=== PATIENT | male | born 1975 | race Caucasian/White ===

== ENCOUNTER 2019-02-11 03:16 | Emergency (ER) | payer MEDICAID ==
[~2019-02-11] VITALS: Ht 167.6 cm; Wt 80.5 kg
[2019-02-11 03:17] VITALS: Ht 167.6 cm; Wt 80.5 kg
[2019-02-11 04:01] VITALS: BP 118/70
== END 2019-02-11 04:01 | disposition home or self-care (01) ==
LOC: ED 03:16
DX: S93.505A Unspecified sprain of left lesser toe(s), initial encounter (principal); W22.8XXA Striking against or struck by other objects, initial encounter; Y93.89 Activity, other specified; Y92.89 Other specified places as the place of occurrence of the external cause; Y99.8 Other external cause status
CPT/HCPCS: Q0092